=== PATIENT | male | born 1950 | race Caucasian/White ===

== ENCOUNTER 2019-01-25 04:47 | Inpatient (IN) | payer OTHER ==
[~2019-01-25] VITALS: Ht 175.3 cm; Wt 102.8 kg
[2019-01-25 04:48] VITALS: BP 106/79
[2019-01-25 05:25] LABS: HEMATOCRIT 38.7 % (42.0-52.0); HEMOGLOBIN 12.8 gm/dL (14.0-18.0); MCH 24.3 pg (26.0-34.0); MCHC 32.9 g/dL (28.0-37.0); MCV 73.7 fL (80.0-100.0); PLATELET COUNT 350 thou/uL (150-400); RBC 5.25 mil/uL (4.50-6.00); WBC 9.3 thou/uL (4.0-11.0)
[2019-01-25 05:35] LABS: CALCIUM 9.4 mg/dL (8.5-10.1); CREATININE 0.8 mg/dL (0.7-1.3); POTASSIUM 4.2 mmol/L (3.5-5.1)
[2019-01-25 05:46] LABS: ALBUMIN 3.2 g/dL (3.4-5.0); TOTAL BILIRUBIN 0.4 mg/dL (<0.1-1.0); TOTAL PROTEIN 7.9 g/dL (6.4-8.2)
[2019-01-25 05:50] LABS: ABSOLUTE NEUTROPHILS 7.3 thou/uL (1.4-8.2); PLATELET ESTIMATE NORMAL
[2019-01-25 05:51] LABS: ANISOCYTOSIS 3+; HYPOCHROMASIA 1+; MICROCYTES 1+; POIKILOCYTOSIS 2+
[2019-01-25 12:49] VITALS: BP 120/71
[2019-01-25 13:49] VITALS: BP 112/56
[2019-01-25] MEDS ORDERED: LISINOPRIL10 MG PO (14:43)
[2019-01-25] MEDS ORDERED: ZINC SULFATE 2220 M1 PO (14:48)
--- NOTE | 2019-01-25 14:50 | NUR ---
ADM PT CAME IN FROM ER. PT ORIENTED TO ROOM. AT BEDSIDE. PT ON NPO. PRN ZOFRAN GIVEN. PT HAD 2X PICC LINE, CONFIRMED BY XRAY IN ER. IV TEAM PAGED, AWAITING CALLBACK. GRADY AND OSTOMY IN PLACE.
[2019-01-25] MEDS ORDERED: APAP650 PO (14:52)
[2019-01-25 14:53] VITALS: BP 124/74
[2019-01-25] MEDS ORDERED: MIRALAX17 GM PO (15:03)
[2019-01-25] MEDS ORDERED: SENOKOT-S1 TA2 PO (15:04)
[2019-01-25] MEDS ORDERED: CENTRUM SILVER1 EAC2 PO (15:06)
[2019-01-25 20:07] VITALS: BP 106/54
[2019-01-26 05:20] VITALS: BP 126/72
--- NOTE | 2019-01-26 07:20 | NUR ---
A/O, calm and pleasant. vss, afebrile. NPO, tolerated well. Day nurse claimed he would have the patient sign the surgery consent.
[2019-01-26 08:01] VITALS: BP 119/75
--- NOTE | 2019-01-26 13:48 | NUR ---
TOWARDS POC PT STILL ON SURGERY AT THIS MOMENT. WILL CONTINUE TO MONITOR ONCE BACK IN THE ROOM.
--- NOTE | 2019-01-26 15:28 | NUR ---
DISCHARGE PLANNING. PATIENT ADMITTED FROM [facility]. PLAN IS FOR PATIENT TO RETURN TO [facility] ONCE MEDICALLY READY. CLINICAL INFORMATION FAXED TO JOSE [facility] ADMISSIONS LIAISON, VERIFIED RECEIVED. FOLLOWING TO ASSIST WITH DISCHARGE NEEDS.
--- NOTE | 2019-01-26 16:54 | NUR ---
PT ADMITTED RELATED TO SBO. CM REVIEWED CHART AND SPOKE WITH CARE TEAM. CM MET WITH PT, SPOUSE, AND DTR AT BEDSIDE THIS DAY. PT HAD BEEN AT [facility] PT AND EY PLAN ON PT RETURNING THERE UPON DISHCARGE. THEY INDICATED THAT THEY LIVE IN A HOUSE HANDICAPPED ACCESSABLE HOUSE WITH NO STEPS TO ENTER AND NO STEPS INSIDE. THEY INDICATED THAT THEY HAVE A SPECIALIZED BED AND MATTRESS, ELECTRIC CALLUM LIFT, STANDING LIFT DEVICES, MANUAL WC. THEY INDICATED THAT THEY WANT FOR PT TO RETURN TO [facility]. UPDATED CLINICAL FAXED TO [facility] AND LIAISON NOTIFIED. CM TO FOLLOW INDICATED WITH DC PLANNING.
[2019-01-26 19:24] VITALS: BP 126/72
--- NOTE | 2019-01-27 02:07 | NUR ---
ASSUMED CARE OF PT AT 1900HRS. PT IS AOX4 AND LETS BEEDS BE KNOWN. PT IS PARAPLEGIC AND IS TURNED EVERY 2-3 HRS. NG AT 80CM AND ON LOW INTERMITTENT SUCTION. GRADY IS PATIENT. OSTOMY BAG INTACT. PT TURNED Q2-3 HOURS. NO OTHER S/S OF ACUTE DISTRESS. WILL CONTINUE TO MONITOR.
[2019-01-27 03:44] VITALS: BP 124/59
[2019-01-27 04:09] LABS: CALCIUM 8.1 mg/dL (8.5-10.1); CREATININE 0.7 mg/dL (0.7-1.3); POTASSIUM 3.6 mmol/L (3.5-5.1)
[2019-01-27 04:26] LABS: HEMATOCRIT 32.5 % (42.0-52.0); MCHC 32.2 g/dL (28.0-37.0); MCV 74.5 fL (80.0-100.0); RBC 4.36 mil/uL (4.50-6.00); RDW 23.6 % (10.5-14.5); WBC 7.2 thou/uL (4.0-11.0)
[2019-01-27 04:30] LABS: HEMOGLOBIN 10.5 gm/dL (14.0-18.0)
[2019-01-27 07:42] VITALS: BP 140/59
--- NOTE | 2019-01-27 11:55 | NUR ---
Nutrition: RD consult for nutrition support. IF NPO expected to be only a few days REC PPN at 125 mL/hr with 250 mL 20% lipids MWF. If NPO expected > 5 days, rec use of TPN standard formula to run at 100 mL/hr to meet ~100% of needs.
--- NOTE | 2019-01-27 13:31 | NUR ---
ORDER REC'D FOR OT EVAL AND TREATMENT. EVAL INITIATED W/INTERVIEW OF PATIENT AND HIS WHO STATE THAT PATIENT IS AT BASELINE FOR SELFCARES AND DOES NOT REQUIRE OT AT THIS TIME. PATIENT HAS ALL EQUIPMENT AT HOME AND HAS BEEN ABLE TO SHOWER IN A ROLL IN PVC CHAIR. HE IS ABLE TO DO HIS GROOMING WELL. WILL DISCHARGE FROM ACUTE OT 01/27/19
--- NOTE | 2019-01-27 14:33 | HC ---
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 HISTORY OF PRESENT ILLNESS: The patient is a 69-year-old T9 paraplegic for the past 30 years. He developed small-bowel obstruction, ischemic bowel in 2015. He underwent resection and colostomy. Subsequently, developed a right ischial tuberosity ulceration, which has failed to heal. This has become infected along with osteomyelitis. Treated with offloading, antibiotics without improvement. 01/06/2019 at [facility], underwent surgical debridement and myocutaneous flap coverage. He remains on Zosyn postoperatively. He is now day 20. Plan on 6 weeks total antibiotic therapy. Subsequently, developed increased abdominal discomfort, nausea and vomiting. Found to have small-bowel obstruction. Plan on taking to surgery for surgical intervention. No fever, chills or sweats. No cough or sputum production. Has Webb catheter. REVIEW OF SYSTEMS: 10-point review of systems is otherwise negative. ALLERGIES: None known. MEDICATIONS: As noted on his MAR including Zosyn. PAST MEDICAL HISTORY: Paraplegia, cholecystectomy, sigmoidectomy, colostomy. FAMILY HISTORY: Noncontributory. SOCIAL HISTORY: Nonsmoker, no significant alcohol intake. PHYSICAL EXAMINATION: VITAL SIGNS: Afebrile and hemodynamically stable. Alert and cooperative. IV access without erythema or drainage. Myocutaneous flap was healthy. Dressing is intact. HEENT: Eyes without scleral icterus. Mouth without mucositis. No palpable adenopathy. LUNGS: Clear. HEART: Regular, without murmur. ABDOMEN: Distended. He had a parastomal hernia. EXTERNAL GENITALIA: Unremarkable without mass or lesion. [facility] [address] [place] [address] CONSULTATION Name: LEVBELA Room #: 452[facility] IN M.R.#: [id number] Admission: 01/25/19 ������������������ Attend Phys: Namrata Wagner MD Discharge: ������������������ Date of : 48 Report #: [id number] RECTAL: Not performed. EXTREMITIES: Without clubbing, cyanosis or edema. He is paraplegic. Cranial nerves intact. Mood was normal. LABORATORY STUDIES: Reviewed. CT scan reviewed. IMPRESSION: 1. 69 year old 20 days out from myocutaneous flap coverage for underlying osteomyelitis of the right ischial tuberosity. Now, a small-bowel obstruction and a parastomal hernia. 2. Paraplegia. RECOMMENDATIONS: We will continue Zosyn for treatment of his ischial osteomyelitis. He is 3 weeks out of a planned 6-week course of therapy. Continue with perioperative care and offloading. General Surgery has evaluated and is planning on surgical intervention to release small-bowel obstruction. ��������������������������������������������� <ELECTRONICALLY SIGNED> ���������������������������������������� By: Binh Crawley MD ��������������������������������������������� 01/27/19 [id number] [id number] Binh Crawley MD /nt
[2019-01-27 14:50] VITALS: BP 113/61
--- NOTE | 2019-01-27 16:15 | NUR ---
PT IS PROGRESSING SLOWLY. PLAN IS FOR PT TO RETURN TO [facility] ONCE MEDICALLY STABLE FOR CONTINUED MEDICAL MANAGEMENT. CM TO FOLLOW INDICATED WITH DC PLANNING.
--- NOTE | 2019-01-27 20:00 | NUR ---
PT A&OX4, VSS, DENIES PAIN. PATIENT REFUSED TURNS TODAY. DRESSING CHANGE TO BUTTOCK COMPLETE TODAY. 150CC OFF NG, NO OUTPUT FROM COLOSTOMY. LAP SITE DRESSING ON ABD C/D/I. PATIENT REMAINS NPO. WILL CONTINUE TO MONITOR.
[2019-01-27 20:08] VITALS: BP 132/72
--- NOTE | 2019-01-28 00:39 | NUR ---
PATIENT AOX4 MAKES NEEDS KNOWN. PATIENT REFUSED TO BE TURNED Q 2HOURS. PATIENT CONTINUES TO SAY HE DOES NOT NEED TO BE TURNED. ATTEMPT X3. PATIENT HAS 3 LAP SITES SECURED WITH KERLIX. DRESSINGS C/D/I. GRADY CARE DONE THIS SHIFT. PATIENT HAS A COLOSTOMY BAG, STOMA IS BEEFY RED. PATIENT DENIED PAIN OR DISCOMFORT. PATIENT IN BED ASLEEP AT THIS TIME BREATHING REGULAR AND UNLABOURED.
[2019-01-28 05:10] VITALS: BP 123/67
[2019-01-28 05:26] LABS: ALBUMIN 2.1 g/dL (3.4-5.0); CREATININE 0.6 mg/dL (0.7-1.3); MAGNESIUM 1.5 mg/dL (1.8-2.4); PHOSPHORUS 1.8 mg/dL (2.5-4.9)
[2019-01-28 05:36] LABS: CALCIUM 7.9 mg/dL (8.5-10.1)
[2019-01-28 07:22] VITALS: BP 109/65
[2019-01-28 14:23] VITALS: BP 107/66
--- NOTE | 2019-01-28 17:47 | NUR ---
PT A&OX4, VSS, DENIES PAIN. DRESSING ON RIGHT BUTTOCK CHANGED AND DRESSING 3 PLACES ON ABDOMEN AND DOWN THE CENTER CHANGED. WOUNDS CLEANSED WITH NORMAL SALINE, XEROFORM, ABD, AND TAPE APPLIED. NG SUCTION GOING PER ORDER, NO OUTPUT FROM COLOSTOMY, AND OUTPUT FROM GRADY CATH RECORDED AND CARE DONE. AT BEDSIDE. PPN STARTED TODAY AND D5W NS DC'D. PATIENT REFUSES TURNS STATING HIS CLINITRON SAND BED RELIEVES PRESSURE. WILL CONTINUE TO MONITOR PATIENT.
[2019-01-28 23:55] VITALS: BP 120/56
--- NOTE | 2019-01-29 05:49 | NUR ---
Pt. rested quietly during the night when checked on during frequent rounds. He offers no c/o pain. Bed alarm is on.
[2019-01-29 09:10] VITALS: BP 115/64
[2019-01-29 16:03] VITALS: BP 121/70
[2019-01-29 19:21] VITALS: BP 130/70
--- NOTE | 2019-01-29 19:40 | NUR ---
Assumed pt care this am, NGT intact only 50cc of green liquid suctioned through out the shift. No output from colostomy was noted. Clinitron sand bed maintained. Stirct daily weights have been ordered, informed night nurse as well. Seen by Dr. Phillips, dc NGT and diet changed to small sips pf clear liquid. FC patent and draining yellow urine. POC follwed.
[2019-01-30 04:03] VITALS: BP 133/71
--- NOTE | 2019-01-30 04:24 | NUR ---
Pt. rested quietly at intervals during the night when checked on during frequent rounds. NG tube to right nare was removed as per orders earlier this shift. Pt. tolerated it well. He has been sipping on clear liquids and tolerated well. No c/o nausea and no emesis. He offers no c/o pain.
[2019-01-30 05:50] LABS: HEMATOCRIT 30.5 % (42.0-52.0); MCH 24.7 pg (26.0-34.0); MCHC 32.7 g/dL (28.0-37.0); MCV 75.5 fL (80.0-100.0); RBC 4.04 mil/uL (4.50-6.00); RDW 23.2 % (10.5-14.5); WBC 6.2 thou/uL (4.0-11.0)
[2019-01-30 06:07] LABS: CALCIUM 8.5 mg/dL (8.5-10.1); CREATININE 0.5 mg/dL (0.7-1.3); MAGNESIUM 1.7 mg/dL (1.8-2.4); POTASSIUM 3.4 mmol/L (3.5-5.1); TOTAL BILIRUBIN 0.3 mg/dL (<0.1-1.0); TOTAL PROTEIN 5.9 g/dL (6.4-8.2)
[2019-01-30 07:29] VITALS: BP 134/70
[2019-01-30 09:01] LABS: ABSOLUTE RETIC COUNT 0.086 10^6/uL; OBSERVED RETIC COUNT 2.09 % (0.6-2.6)
[2019-01-30 09:48] LABS: FOLIC ACID 13.8 ng/mL (8.6-58.9)
[2019-01-30 09:57] LABS: % SATURATION 10 % (20-39); IRON 17 ug/dL (65-175); TIBC 165 ug/dL (250-450)
--- NOTE | 2019-01-30 14:04 | O ---
[address] [address] OPERATIVE REPORT Name: BELA OHARA Room #: 452-P ADM IN M.R.#: [id number] Admission: 01/25/19 ������������������ Attend Phys: Namrata Wagner MD Discharge: ������������������ Date of : 48 Report #: [id number] THIS REPORT FOR: //name// CC: FAM unknown Namrata Wagner DATE OF SERVICE: 01/26/2019 PREOPERATIVE DIAGNOSES: 1. Small-bowel obstruction due to parastomal hernia. 2. Colostomy. 3. Peristomal hernia. 4. Right ischial tuberosity, osteomyelitis and associated pressure ulcer with recent skin flap. 5. Paraplegia. 6. Hypertension. 7. History of deep venous thrombosis/pulmonary embolism with IVC filter in place. POSTOPERATIVE DIAGNOSES: 1. 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 2. Very small parastomal hernia. PROCEDURE PERFORMED: 1. Diagnostic laparoscopy. 2. Laparoscopic adhesiolysis for 30 minutes. 3. Exploratory laparotomy. 4. Adhesiolysis, open. 5. Primary repair of parastomal hernia. SURGEON: Hussein Menendez MD JEWEL SUPERVISOR: None. ANESTHETIC: 1. General. 2. Local. ESTIMATED BLOOD LOSS: 100 mL. COMPLICATIONS: None. FINDINGS: 1. No small bowel herniated through the parastomal region at the time of diagnostic laparoscopy. 2. No large peristomal hernia present. [address] [address] OPERATIVE REPORT Name: BELA OHARA Room #: 452-P [facility] IN M.R.#: [id number] Admission: 01/25/19 ������������������ Attend Phys: Namrata Wagner MD Discharge: ������������������ Date of : 48 Report #: [id number] 3. The patient did have lobheqsd-sb-[id number] adhesions in the pelvis and in the left lower quadrant involving omentum and small bowel and likely the rectal pouch. SPECIMENS: None. PROCEDURE: The risks, benefits and alternatives of the procedure were discussed with the patient and his preoperatively. The risks discussed included but were not limited to the risk of bleeding, infection, conversion to open, use of mesh, damage to any intra-abdominal organ including hollow viscus solid blood vessels, nerves, etc., use of mesh, general anesthesia including cardiac, pulmonary, neurologic type complications, need for further surgery, need for prolonged hospitalization, postoperative ileus, postoperative abscess, and . The patient and his had the opportunity to ask questions. All questions were answered to the best of my ability. Alternatives discussed were continued conservative management. At the end of the discussion, they did wish to proceed with surgery. After informed consent was obtained, as above, the patient was taken to the operating room carefully placed on to the operating room table in supine position without using sliding board transfer. The patient was propped up off of his right side in order to alleviate pressure. General anesthesia was induced. Preprocedural antibiotics had already been administered. The patient was on Zosyn. His ostomy appliance was removed. The ostomy was clean. The abdomen was prepped and draped in usual sterile fashion. The ostomy was excluded with an Ioban, a timeout was performed, all were in agreement. The procedure began by making a 5 mm incision in the left subcostal position. Veress needle was then inserted and pneumoperitoneum was created. This was done without difficulty and took one attempt. Optiview technique was used to gain access into the peritoneal cavity. This was done without difficulty. No iatrogenic issues were detected. A lighted laparoscope was inserted. The abdomen was inspected. There were no abnormalities except for as described above. The following ports were placed in standard fashion under direct visualization. Two more left-sided 5 mm ports and one 12 mm left lateral port. These were all done under direct visualization without any adverse events occurring. I then began by inspecting the patient's colon leading up to the stoma. This was easily visible and there was not any associated adhesions in this region. The colon was easily identifiable due to the tinea running alongside it. There was no easily detectable small bowel in this region. The patient did not have a large hernia defect. I therefore began taking the small bowel from the terminal ileum and ileocecal valve proximally, approximately 25 cm proximal to the terminal ileum, the patient had adhesions to the pelvis. The small bowel was not able to be mobilized. The omentum was stuck to the left lateral [address] [address] OPERATIVE REPORT Name: BELA OHARA Room #: 452-P ADM IN M.R.#: [id number] Admission: 01/25/19 ������������������ Attend Phys: Namrata Wagner MD Discharge: ������������������ Date of : 48 Report #: [id number] sidewall. These were lysed laparoscopically and attempt to lyse the adhesions and proximal small bowel, which was dilated was then ran distally in an attempt to find a free region of bowel to lyse the bowel laparoscopically; however, it appeared as though there was a large segment of bowel was adhered to the retroperitoneum in the pelvis and in the lower abdomen. I then consulted with a partner and discussed plan. I do not feel though the patient's small-bowel obstruction was due to his stoma or a parastomal hernia and felt as though he had adhesive small bowel disease. I did not feel safe proceeding laparoscopically and I thought it would be more beneficial for the patient to open and lysis of adhesions completely. The conversation was held with my partner who is in agreement. The procedure was then converted to an open procedure through a midline exploratory laparotomy incision through the patient's previous incision, carried down through the fascia using electrocautery. The peritoneal cavity was entered without any adverse effect. Sam wound protector was then inserted and a Bookwalter retracting system was used as well. The cecum was identified. The small bowel was ran from the terminal ileum to the pelvis and there was immediately adhesions. Extreme caution was used lysing adhesions. We spent approximately one hour lysing adhesions in open fashion using both electrocautery and using scissors, the small bowel was completely freed up from the retroperitoneum in a loop of adhesions that were necessary to be lysed were lysed. The small bowel was freed all the way to the ligament of Treitz. There was a very small 1 cm serosal tear that was made. This was repaired using 2-0 Vicryl Lembert sutures in interrupted fashion. The repair was adequate and there was never a full thickness injury identified. Once the entire small bowel was freed, I did confirm that there was no association with the small bowel at the hernia. The parastomal region was then explored bluntly. There was a very small, approximately 0.5 to 1 cm region on the lateral aspect of the stoma intraperitoneally where I could enter my finger. This was again very small. I did not feel as though mesh would be required to address this. I felt as though placing a mesh in this setting would be unnecessary and not in the patient's best interest. Therefore, this is very small region was tightened using a 0 PDS in an interrupted fashion. The defect was closed and it was now adjacent to the colon and my finger was not able to penetrate this region anymore. The small bowel was then ran again from the ligament of Treitz to the terminal ileum inspecting it closely for any further serosal tears or bowel integrity issues. The mesentery and the bowel was all healthy. The bowel was ran entirely third time back and forth from the TI to the ligament of Treitz and from the ligament of Treitz to TI ensuring that there was no further small bowel issues. While we were lysing adhesions, there was again a lot of adhesions to the retroperitoneum. However, in one discrete location, there was a region of [facility] [address] [place] [address] OPERATIVE REPORT Name: LEVBELA Room #: 452-P ADM IN M.R.#: [id number] Admission: 01/25/19 ������������������ Attend Phys: Namrata Wagner MD Discharge: ������������������ Date of : 49 Report #: [id number] distended dilated large bowel that was associated with an adhesive band where it decompressed into nondilated bowel. This was thought to be the transition point. Hemostasis was ensured. The omentum was placed over the small bowel. The wound protector was removed. Counts were insured. The abdomen was irrigated out. Hemostasis was present. The fascia was closed using 0 PDS in a continuous running fashion. The skin wound was irrigated out using warm saline. Hemostasis was present. The skin incisions were closed using stapler. The skin incisions were dressed. Then, the ostomy was uncovered and the appliance was placed. The patient tolerated the procedure well. There were no adverse events throughout the course of the procedure. ��������������������������������������������� <ELECTRONICALLY SIGNED> ���������������������������������������� By: Hussein Menendez MD ��������������������������������������������� 01/30/19 [id number] [id number] Hussein Menendez MD /nt
[2019-01-30 15:28] VITALS: BP 136/75
--- NOTE | 2019-01-30 17:02 | NUR ---
CARE TEAM INDICATED THAT PT WILL LIKELY BE MEDICALLY STABLE TO DC BACK TO [facility] TOMORROW. CLINICAL UPDATES FAXED TO [facility]. TO ARRANGE DC. CM FOLLOWING REGARDING DC PLANNING.
[2019-01-30 19:16] VITALS: BP 131/76
--- NOTE | 2019-01-30 20:16 | NUR ---
A&OX4, VSS, DENIES PAIN. ANTIBIOTICS, WOUND CARE TO FLAP SITE AND ABDOMEN (NO XEROFORM TO ABD PER DR. MCCURDY), DAILY WEIGHT, ALL GIVEN PER ORDER. PATIENT STABLE DENIES CHEST PAIN AND SOA. GRADY CARE AND COLOSTOMY CARE COMPLETE. PATIENT PRODUCING MORE OUTPUT VIA GRADY AND COLOSTOMY. FAMILY AT BEDSIDE, WILL CONTINUE TO MONITOR.
--- NOTE | 2019-01-31 04:44 | NUR ---
Pt. has rested at short intervals during the night when checked on during frequent rounds. He c/o indigestion and was given tums with no relief. Spoke with Yun BAEZ and received order for Maalox. Pt. was too nauseated to take it and just did not want anything, but try to settle his stomach on his own. Later, pt. did take maalox (see emar) with partial relief of indigestion. This am. pt. c/o some nausea, but no emesis. Zofran iv given with some relief (see emar). No c/o pain.
[2019-01-31 07:56] VITALS: BP 135/78
[2019-01-31] MEDS ORDERED: ZOSYN 3.3753.375 GM IV (10:28)
--- NOTE | 2019-01-31 15:06 | NUR ---
CARE TEAM INDICATED THAT PT IS MEDICALLY STABLE TO DC BACK TO [facility] THIS DAY. CHART COPY ORDRED. ORDERS FAXED. [facility] SET UP FOR 1500. PT AND SPOUSE AWARE AND AGREEABLE. REPORT TO BE CALLED TO . NO OTHER CM INTERVENTION INDICATED. CASE CLOSED.
== END 2019-01-31 16:00 | DRG 335 ==
LOC: ER 04:47 → EROBS 09:42 → 4W 09:42
PROVIDERS: Emergency Medicine; Surgery; ADMIT Internal Medicine
DX: K43.3 Parastomal hernia with obstruction, without gangrene (principal); E43 Unspecified severe protein-calorie malnutrition; G82.20 Paraplegia, unspecified; M86.8X8 Other osteomyelitis, other site; K56.7 Ileus, unspecified; E87.6 Hypokalemia; D50.9 Iron deficiency anemia, unspecified; I10 Essential (primary) hypertension; Z68.33 Body mass index [BMI] 33.0-33.9, adult; Z90.49 Acquired absence of other specified parts of digestive tract; Z86.718 Personal history of other venous thrombosis and embolism; Z86.711 Personal history of pulmonary embolism; Z95.820 Peripheral vascular angioplasty status with implants and grafts; Z93.3 Colostomy status
CPT/HCPCS: 10040; 10045; 50010; 50101; 50249; 50386; 50525; 50555; 50558; 51412; 52265; 53307; 53310; 56462; 56525; 56529; 57092; 62110; 62900; 70005